=== PATIENT | male | born 1955 | race Caucasian/White ===

== ENCOUNTER 2021-11-27 13:19 | Emergency (ER) | payer SELFPAY ==
[2021-11-27 13:41] VITALS: BP 138/97; PULSE 75; TEMP 98.2; BMI 25.9
== END 2021-11-27 15:26 | disposition home or self-care (01) ==
LOC: JERFT 13:19
DX: S60.931A Unspecified superficial injury of right thumb, initial encounter (principal); W23.0XXA Caught, crushed, jammed, or pinched between moving objects, initial encounter
CPT/HCPCS: 73140-TC-RT-FY; 99283-25